=== PATIENT | male | born 1995 | race Caucasian/White ===

== ENCOUNTER 2019-05-11 10:28 | Emergency (ER) | payer SELFPAY ==
--- NOTE | 2019-05-11 11:28 | UC ---
Back Pain HPI - HPI Summary HPI Summary: 24-year-old male presents with complaints of thoracic back pain. States yesterday at work he slipped and fell backwards onto a mop bucket striking his mid upper back between his shoulder blades. States pain was worse this morning. Denies any chest pain, shortness of breath, weakness, numbness, or tingling of his extremities. - History of Current Complaint Chief Complaint: UCBackPain Stated Complaint: BACK INJURY Time Seen by Provider: 05/11/19 11:20 Hx Obtained From: Patient Pain Intensity: 3 - Allergies/Home Medications Allergies/Adverse Reactions: Allergies Allergy/AdvReac Type Severity Reaction Status Date / Time No Known Allergies Allergy Verified 05/11/19 10:48 Home Medications: Home Medications Ibuprofen [Advil] 400 mg PO ONCE PRN 05/11/19 [History Confirmed 05/11/19] PMH/Surg Hx/FS Hx/Imm Hx Previously Healthy: Yes - Denies significant PMH - Surgical History Surgical History: None - Family History Known Family History: Positive: Non-Contributory - Social History Occupation: Employed Full-time Lives: Alone Alcohol Use: Rare Substance Use Type: Marijuana Smoking Status (MU): Light Every Day Tobacco Smoker Type: eCigarettes Amount Used/How Often: 5cig/day, vaping Household Exposure Type: Cigarettes Review of Systems All Other Systems Reviewed And Are Negative: Yes Constitutional: Positive: Negative Skin: Negative: Bruising Respiratory: Negative: Shortness Of Breath, Cough Cardiovascular: Negative: Chest Pain Gastrointestinal: Positive: Negative Genitourinary: Positive: Negative Motor: Positive: Negative Musculoskeletal: Positive: Negative Neurological: Positive: Negative Is Patient Immunocompromised?: No Physical Exam - Summary Physical Exam Summary: GENERAL APPEARANCE: Well developed, well nourished, alert and cooperative, and appears to be in no acute distress. NECK: Neck supple, non-tender without lymphadenopathy. CARDIAC: Normal S1 and S2. No S3, S4 or murmurs. Rhythm is regular. There is no peripheral edema, cyanosis or pallor. Extremities are warm and well perfused. Capillary refill is less than 2 seconds. Peripheral pulses intact. LUNGS: Clear to auscultation without rales, rhonchi, wheezing or diminished breath sounds. ABDOMEN: Positive bowel sounds. Soft, nondistended, nontender. No guarding or rebound. No masses or hepatosplenomegally. MUSKULOSKELETAL: ROM intact to all extremities. No joint erythema or tenderness. Normal muscular development. Normal gait. BACK: Examination of the spine reveals no spinal deformity. Midline tenderness with palpation over the mid thoracic spine. Mild right paraspinous soft tissue tenderness over the scapula. SKIN: Skin normal color, texture and turgor with no lesions or eruptions. Triage Information Reviewed: Yes Vital Signs: Initial Vital Signs Temp 98.6 F 05/11/19 10:44 Pulse 74 05/11/19 10:44 Resp 18 05/11/19 10:44 BP 114/76 05/11/19 10:44 Pulse Ox 99 05/11/19 10:44 Vital Signs Reviewed: Yes Diagnostics - Radiology No standard instances Radiology Interpretation Completed By: Radiologist Summary of Radiographic Findings: Order Information: THORACIC SPINE 2 VWS. HISTORY: pain s/p fall onto mp bucket. COMPARISONS: None relevant available at the time of dictation. VIEWS: 3, Frontal and lateral views of the thoracic spine. FINDINGS: ALIGNMENT: There is a mild levoscoliotic curvature of the spine. VERTEBRAL BODIES: The vertebral body heights are normal. The interpedicular distances are normal. JOINTS: Unremarkable. INTERVERTEBRAL DISCS: There is diffuse loss of intervertebral disc height. SOFT TISSUE: Unremarkable. OTHER: The visualized lungs are clear. IMPRESSION: MILD SCOLIOSIS. Back Pain Course/Dx - Course Course Of Treatment: 24-year-old male presents with complaints of thoracic back pain. States yesterday at work he slipped and fell backwards onto a mop bucket striking his mid upper back between his shoulder blades. States pain was worse this morning. Denies any chest pain, shortness of breath, weakness, numbness, or tingling of his extremities. Afebrile. Vital signs stable. On exam patient had midline tenderness with palpation over the mid thoracic spine as well as mild right paraspinous soft tissue tenderness over the scapula without deformity. Remainder of exam was unremarkable. X-ray of the thoracic spine showed mild scoliosis but no acute fracture. Reviewed results with the patient. Recommending conservative treatment for acute back pain including over -the-counter analgesics and heat therapy. He is to follow-up with occupational medicine in 7 days if symptoms are not improving. Anticipatory guidance and warning symptoms were reviewed patient. Verbalizes understanding and agrees with plan of care. - Differential Dx/Diagnosis Differential Diagnosis/HQI/PQRI: Fracture, Herniated Disc, Strain, Other - Contusion Provider Diagnosis: Acute thoracic back pain Discharge ED - Sign-Out/Discharge Documenting (check all that apply): Patient Departure All imaging exams completed and their final reports reviewed: Yes - Discharge Plan Condition: Stable Disposition: HOME Patient Education Materials: Back Pain (ED) Forms: *Work Release Referrals: Lily DECKER,Eliezer Lopez [Primary Care Provider] - Filemon Green MD [Medical Doctor] - 7 Days (If no improvement in symptoms. Call for appointment.) Additional Instructions: The x-ray performed in the clinic today showed no evidence of a fracture. Rest as much as possible. Avoid heavy lifting or strenuous activity. Apply heating pad to the affected area for 15-20 minutes at least 4 times a day to help with the pain and swelling. Take acetaminophen (Tylenol) or ibuprofen (Advil, Motrin) according to directions as needed for pain. Follow up with occupational medicine in 7 days if symptoms do not improve. Seek immediate medical attention if you have chest pain, shortness of breath, severe pain not managed with pain medication, you are unable to walk, develop weakness, numbness, or tingling in lower extremities, lose control of your bowel or bladder, or have any worsening of symptoms. - Billing Disposition and Condition Condition: STABLE Disposition: Home - Attestation Statements Provider Attestation: Per institutional requirements, I have reviewed the chart, however, I was not consulted specifically or made aware of this patient by the midlevel provider. I did not personally evaluate, interact with , or disposition this patient.
== END 2019-05-11 12:38 | disposition home or self-care (01) ==
LOC: UCEAST 10:28
DX: M54.6 Pain in thoracic spine (principal); M41.84 Other forms of scoliosis, thoracic region; F17.290 Nicotine dependence, other tobacco product, uncomplicated
CPT/HCPCS: 72070; 99201; G0463